=== PATIENT | male | born 1990 | race Caucasian/White ===

== ENCOUNTER 2020-09-03 08:13 | Emergency (ER) | payer OTHER ==
[~2020-09-03] VITALS: Ht 182.9 cm; Wt 70.3 kg
[2020-09-03] MEDS ORDERED: LEVOTHYROXINE25 MCG PO (08:58)
[2020-09-03] MEDS ORDERED: SYNTHROID200 MCG PO (08:58)
== END 2020-09-03 15:15 | disposition home or self-care (01) ==
LOC: ER 08:13
DX: K29.60 Other gastritis without bleeding (principal)